=== PATIENT | male | born 1955 | race Caucasian/White ===

== ENCOUNTER 2018-12-24 16:08 | Observation (INO) | payer MEDICARE ==
[2018-12-24] MEDS ORDERED: Ondansetron PF 4 MG/2 ML Vial ONE (16:50)
[2018-12-24 16:55] LABS: #Basophils 0.1 thou/uL (0.0-0.2); #Eosinphils 0.1 thou/uL (0.0-0.7); #Monocytes 0.7 thou/uL (0.11-0.59); #Neutrophils 6.4 thou/uL (1.40-6.50); %Basophils 0.6 % (0.0-1.0); %Eosinophils 0.7 % (0.0-10.0); %Lymphocytes 21.5 % (21.0-51.0); %Neutrophils 69.2 % (42.0-75.0); Hemoglobin 16.8 g/dL (14.0-18.0); Mean Corpuscular HGB CONC 31.9 g/dL (32.0-36.0); Mean Corpuscular Hemoglobin 28.5 pg (27.0-31.0); Mean Corpuscular Volume 89.4 fL (78.0-98.0); Mean Platelet Volume 7.9 fL (7.4-10.4); Platelet Count 258 thou/uL (130-400); RBC Distribution Width 13.1 % (11.5-14.5); Red Blood Cell (RBC) Count 5.87 mill/uL (4.70-6.10); White Blood Cell (WBC) Count 9.2 thou/uL (4.8-10.8)
[2018-12-24 17:20] LABS: ALT (SGPT) 22 U/L (8-55); AST (SGOT) 22 U/L (5-34); Albumin 4.7 g/dL (3.4-4.8); Alkaline Phosphatase 137 U/L (40-150); Anion Gap 19 mmol/L (10-20); BUN (Urea Nitrogen) 24 mg/dL (8.4-25.7); Bilirubin, Total 0.6 mg/dL (0.2-1.2); CK (CPK) 75 U/L (30-200); Calc. Creatinine Clearance 0 mL/min (70-130); Calcium 10.2 mg/dL (7.8-10.44); Carbon Dioxide 22 mmol/L (23-31); Chloride 101 mmol/L (98-107); Estimated GFR-MDRD 40; Globulin 3.8 g/dL (2.4-3.5); Glucose 136 mg/dL (80-115); Potassium 4.4 mmol/L (3.5-5.1); Protein, Total 8.5 g/dL (5.8-8.1); Sodium 138 mmol/L (136-145)
--- NOTE | 2018-12-24 17:59 | PDOC.FPRHP ---
- History of Present Illness Chief Complaint: Weakness History of Present Illness: Mr. Daniel is a 63 y/o male who presents to the ED following a period of weakness earlier today. 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 He endorsed additional symptoms of diaphoresis, nausea, and two episodes of vomiting. He thought that he would be able to drive home and decided to stop for a hamburger, which he subsequently threw up. At that point, he felt unsafe and drove to the hospital. He denied syncope, head trauma, headache, changes in vision, chest pain, shortness of breath, recent illness, polyuria, dysuria, diarrhea, and substance abuse. ED Course: The patient received a 1L bolus of NS in the ED. - Allergies/Adverse Reactions Allergies Allergy/AdvReac Type Severity Reaction Status Date / Time No Known Allergies Allergy Unverified 12/24/18 21:22 - Home Medications Medication Instructions Recorded Confirmed Type Aspirin 325 mg PO DAILY 12/24/18 12/24/18 History Atorvastatin Calcium [Lipitor] mg PO DAILY 12/24/18 History Clopidogrel Bisulfate [Clopidogrel] 75 mg PO DAILY 12/24/18 12/24/18 History Lisinopril 20 mg PO DAILY 12/24/18 12/24/18 History Nitroglycerin [Nitrostat] 0.4 mg SL Q5MIN PRN 12/24/18 12/24/18 History metFORMIN [Glucophage] 500 mg PO BID-WM 12/24/18 12/24/18 History - History PMHx: CABG, HTN, Unspecified Vertebral Tumor w/ Surgical Removal PSHx: Right TKA, See Above FHx: Unable to Obtain Social: 1.5-2 PPD Tobacco Abuse, Denies EtOH and Drug Abuse. Works as a entry level truck driver. - Review of Systems General: denies: fever/chills, weight/appetite/sleep changes, night sweats, fatigue Eyes: denies: vision changes ENT: denies: nasal congestion, rhinorrhea Respiratory: denies: cough, shortness of breath Cardiovascular: denies: chest pain, palpitation Gastrointestinal: reports: nausea, vomiting. denies: diarrhea, abdominal pain Genitourinary: denies: dysuria, discharge Skin: denies: rashes, lesions Musculoskeletal: denies: swelling Neurological: reports: weakness. denies: syncope, seizure - Vital signs BP: [89/59] HR: [91] RR: [13] Tmax: [--] Pox: [100]% on [Room] Wt: [104 kg] - Physical Exam Constitutional: NAD, awake, alert and oriented, well developed HEENT: normocephalic and atraumatic, PERRLA, EOMI, conjunctiva clear, no scleral icterus, grossly normal vision, grossly normal hearing, other (Dry Mucous Membranes) Neck: supple, FROM, trachea midline, no LAD, no JVD Chest: no-tender to palpation, no lesions Heart: RRR, normal S1/S2, no murmurs/rubs/gallops, pulses present, no edema Lungs: CTAB, no respiratory distress, good air movement, no rales/rhonchi, no wheezing, no retractions Abdomen: soft, non-tender Musculoskeletal: normal structure, normal tone, ROM grossly normal Neurological: no focal deficit Skin: no rash/lesions -Skin: Delayed Capillary Refill Heme/Lymphatic: no unusual bruising or bleeding, no purpura, no petechia Psychiatric: normal mood and affect, intact recent and remote memory FMR H&P: Results - Labs Result Diagrams: 12/24/18 16:51 12/24/18 16:28 Lab results: WBC 9.2 thou/uL (4.8-10.8) 12/24/18 16:51 Hgb 16.8 g/dL (14.0-18.0) 12/24/18 16:51 Hct 52.5 % (42.0-52.0) H 12/24/18 16:51 MCV 89.4 fL (78.0-98.0) 12/24/18 16:51 Plt Count 258 thou/uL (130-400) 12/24/18 16:51 Neutrophils % 69.2 % (42.0-75.0) 12/24/18 16:51 Sodium 138 mmol/L (136-145) 12/24/18 16:28 Potassium 4.4 mmol/L (3.5-5.1) 12/24/18 16:28 Chloride 101 mmol/L (98-107) 12/24/18 16:28 Carbon Dioxide 22 mmol/L (23-31) L 12/24/18 16:28 BUN 24 mg/dL (8.4-25.7) 12/24/18 16:28 Creatinine 1.74 mg/dL (0.7-1.3) H 12/24/18 16:28 Glucose 136 mg/dL (80-115) H 12/24/18 16:28 Calcium 10.2 mg/dL (7.8-10.44) 12/24/18 16:28 Total Bilirubin 0.6 mg/dL (0.2-1.2) 12/24/18 16:28 AST 22 U/L (5-34) 12/24/18 16:28 ALT 22 U/L (8-55) 12/24/18 16:28 Alkaline Phosphatase 137 U/L (40-150) 12/24/18 16:28 Creatine Kinase 75 U/L (30-200) 12/24/18 16:28 B-Natriuretic Peptide 59.8 pg/mL (0-100) 12/24/18 16:34 Serum Total Protein 8.5 g/dL (5.8-8.1) H 12/24/18 16:28 Albumin 4.7 g/dL (3.4-4.8) 12/24/18 16:28 - EKG Interpretation EKG: Ischemic, ST Depression in V1-V3, inverted T Waves in V1-V3, Prolonged QTC, 78 BPM - Radiology Interpretation Chest x-ray Status: report reviewed by me (AICD in place with normal cardiac silhouette and pulmonic vasculature) FMR H&P: A/P - Problem List (1) Weakness Current Visit: Yes Status: Acute Code(s): R53.1 - WEAKNESS (2) Tobacco abuse Current Visit: Yes Status: Acute Code(s): Z72.0 - TOBACCO USE (3) CAD (coronary artery disease) Current Visit: Yes Status: Acute Code(s): I25.10 - ATHSCL HEART DISEASE OF [place] CORONARY ARTERY W/O ANG PCTRS (4) HTN (hypertension) Current Visit: Yes Status: Acute Code(s): I10 - ESSENTIAL (PRIMARY) HYPERTENSION (5) Heat exhaustion Current Visit: Yes Status: Acute Code(s): T67.5XXA - HEAT EXHAUSTION, UNSPECIFIED, INITIAL ENCOUNTER - Plan 1. Weakness, Heat Exhaustion Suspected -Likely secondary outdoor physical activity and subsequent dehydration -Cardiopulmonary etiology less likely based on imaging, negative Troponins x3 -Acute intoxication less likely based on mental status and history -BUN:Cr Ratio: 13.7 -Na: 138 -NS IV 150 ml/hr -Monitor fluid and electrolyte status, avoid rapid volume replacement 2. CAD -Continue home regimen of Aspirin 81 mg and Clopidogrel 75 mg, both PO daily -Advise F/U w/ PCP for risk stratification and subsequent statin initiation -Heart Healthy Diet 3. HTN -Currently hypotensive, likely 2/2 to dehydration -Hold HTN medications -Monitor for improvement following fluid resuscitation 4. Tobacco Abuse -Technical Report Writer patient on importance of smoking cessation in presence of severe cardiac risk factors -Consider nicotine patches if withdrawal symptoms present Dispo: Admit patient to Telemetry, continue fluid resuscitation and monitor clinically. Likely DC in the AM. FMR H&P: Upper Level - Pertinent history 63 yo male presents for evaluation after being in the heat today. 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 He reports increased sweating. He states he stopped working and left. He then reports eating a hamburger, but needing to stop on the side of the road to vomit. Otherwise no other acute changes to his health. Please see internet programmer note above for further information. General: Male appears stated age, NAD. Dry mucous membranes CV: RRR, no murmurs. AICD palpated to left upper chest Respiratory: CTA, no wheezing Psych: A&Ox3 Neuro: No focal deficits Abdomen: Soft, nontender, normoactive BS Extremities: No edema, equal movements bilaterally - Plan Date/Time: 12/24/181758 IBj MD, have evaluated this patient and agree with findings/ plan as outlined by internet programmer resident. Pertinent changes/additions are listed here. 1. Heat exhaustion - IVF rehydration - Likely be ready for discharge tomorrow - Monitor VS routine - Monitor I&Os - Consideration given to ACS with Heart Score 4 - Troponins negative x3 2. CAD - No indication for acute cardiac cause today - s/p stents - Continue home meds 3. DM2 - Continue home meds 4. HTN - Hold home BP meds for now due to hypotension secondary to volume depletion 5. YENNY - IVF as above PCP: OOT CODE STATUS: FULL CODE Disposition: Stable, patient will be admitted for 24 hours observation and rehydration. Addendum - Attending - Attending Attestation Date/Time: 12/24/182106 I personally evaluated the patient and discussed the management with Dr. Carrillo I agree with the History, Examination, Assessment and Plan documented above with any addition or exceptions noted below. 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 Patient describes weakness and episode of nausea and presented to [facility] and ruled out for ACS and admitted for dehydration and further observation. Patient with significant smoking history and FMHX Heart disease. Past attempt to aid quitting with nicoderm and chantix unsuccessful due to medication side effects, stressed importance of modifiable risk factor reduction. Patient not interested in tobacco cessation at this time.
[2018-12-24 18:10] LABS: Bilirubin Negative (Negative); Blood, Urine Negative (Negative); Clarity Clear (Clear); Glucose, Urine (Dipstick) 300 mg/dL (Negative); Leukocyte Negative Leu/uL (Negative); Nitrite Negative (Negative); Protein, Urine (Dipstick) 30 mg/dL (Neg-Trace); RBC/HPF 0-3 HPF (0-3); Squamous Epithelial 0-3 HPF (0-3); WBC/HPF 0-3 HPF (0-3)
[2018-12-24 18:20] LABS: Bacteria/HPF None Seen HPF (None Seen); Calcium Oxalate Crystals 1+ HPF (None Seen)
--- NOTE | 2018-12-24 18:23 | RAD ---
PORTABLE AP CHEST X-RAY: HISTORY: The patient reports being overheated and dizzy. The patient is having difficulty getting up from a s upine position. COMPARISON: None available. FINDINGS: A dual-lead left subclavian AICD is noted in place. Post surgical changes related to median sternoto my are noted. The cardiac silhouette is magnified by projection but is at the upper limits of normal to borderline enlarged. The pulmonary vasculature is within normal limits. The lungs are clear. T he osseous structures appear intact. IMPRESSION: No acute cardiopulmonary process. POS: COREY
[2018-12-24] MEDS ORDERED: Aspirin Chewable 81 MG TAB ONE (18:44)
[2018-12-24] MEDS ORDERED: Acetaminophen 325 MG TAB PO PRN (20:07)
[2018-12-24] MEDS ORDERED: HYDROcodone/Acetaminophen 5/325 mg Tablet PO PRN ×2 (20:07)
[2018-12-24] MEDS ORDERED: Sodium Chloride 0.9% 1,000 ML IV SCH (20:07)
[2018-12-24] MEDS ORDERED: Ondansetron PF 4 MG/2 ML Vial IVP PRN (20:07)
[2018-12-24 20:08] VITALS: BMI 31.0
[2018-12-24] MEDS ORDERED: Ondansetron ODT 4 MG TAB PO PRN (20:47)
[2018-12-24 20:51] LABS: Troponin I Less than 0.010 ng/mL (< 0.028)
[2018-12-24] MEDS ORDERED: Melatonin 3 MG TAB PO PRN (22:29)
[2018-12-24] MEDS: Sodium Chloride 0.9% 1,000 ML IV SCH (22:46)
[2018-12-24 23:53] LABS: Troponin I 0.023 ng/mL (< 0.028)
[2018-12-25] MEDS ORDERED: Nitroglycerin 0.4 MG TAB (25 Tab Bottle) SL PRN (00:59)
[2018-12-25 03:18] LABS: Troponin I 0.013 ng/mL (< 0.028)
[2018-12-25 03:24] LABS: Anion Gap 11 mmol/L (10-20); BUN (Urea Nitrogen) 23 mg/dL (8.4-25.7); Calc. Creatinine Clearance 95 mL/min (70-130); Calcium 8.3 mg/dL (7.8-10.44); Carbon Dioxide 25 mmol/L (23-31); Chloride 108 mmol/L (98-107); Estimated GFR-MDRD 62; Glucose 127 mg/dL (80-115); Potassium 4.1 mmol/L (3.5-5.1); Sodium 140 mmol/L (136-145)
[2018-12-25] MEDS: Sodium Chloride 0.9% 1,000 ML IV SCH ×2 (05:38→10:45)
--- NOTE | 2018-12-25 06:22 | PDOC.FM ---
- Subjective Subjective: Pt is feeling well this morning. Denies any events overnight. States that he was feeling much better by the time he got to the floor. Denies any continued dizziness or lightheadedness. Is eager to be discharged. - Objective Vital Signs & Weight: Vital Signs (12 hours) Temp Pulse Resp BP Pulse Ox 12/25/18 04:10 97.6 F 66 18 97/55 L 96 12/24/18 23:27 97.6 F 69 20 91/53 L 96 12/24/18 20:08 97.8 F 80 16 100/59 L 98 Weight Weight 103.918 kg I&O: 12/23/18 12/24/18 12/25/18 06:59 06:59 06:59 Output Total 250 Balance -250 Result Diagrams: 12/24/18 16:51 12/25/18 02:41 Phys Exam - Physical Examination Constitutional: NAD HEENT: PERRLA, moist MMs Neck: full ROM Respiratory: no wheezing, no rales, no rhonchi, clear to auscultation bilateral Cardiovascular: RRR, no rub 2/6 soft short systolic murmur Gastrointestinal: soft, non-tender, no distention, positive bowel sounds Musculoskeletal: no edema, pulses present Neurological: non-focal, moves all 4 limbs Psychiatric: normal affect, A&O x 3 Skin: no rash, cap refill <2 seconds Dx/Plan (1) Acute kidney injury Code(s): N17.9 - ACUTE KIDNEY FAILURE, UNSPECIFIED Status: Acute (2) CAD (coronary artery disease) Code(s): I25.10 - ATHSCL HEART DISEASE OF [place] CORONARY ARTERY W/O ANG PCTRS Status: Acute (3) HTN (hypertension) Code(s): I10 - ESSENTIAL (PRIMARY) HYPERTENSION Status: Acute (4) Heat exhaustion Code(s): T67.5XXA - HEAT EXHAUSTION, UNSPECIFIED, INITIAL ENCOUNTER Status: Acute - Plan Plan: Heat Exhaustion - Dehydration Was working outside in the head a large portion of the day -Cardiopulmonary etiology less likely based on imaging, negative Troponins x3 -BUN:Cr Ratio: 13.7 upon admission -NS IV 150 ml/hr Acute Kidney Injury -Cr 1.74 upon admission -Likely due to acute dehydration -Fluid resuscitated overnight -Resolved this a.m. with Cr of 1.2 -Recommended continued oral rehydration upon DC CAD -Continue home regimen of Aspirin 81 mg and Clopidogrel 75 mg, both PO daily -Advise F/U w/ PCP for risk stratification and subsequent statin initiation HTN -Hypotensive upon admission, home BP rx held -Normalized with fluid resuscitation -Will cont home rx upon DC Dispo: Admitted for likely heat exhaustion, dehydration, and YENNY - all have resolved at this point, will DC this am
[2018-12-25] MEDS ORDERED: metFORMIN 500 MG TAB PO SCH (08:00)
[2018-12-25 08:21] VITALS: BP 106/54; TEMP 97.4
[2018-12-25] MEDS ORDERED: Aspirin 325 MG TAB PO SCH (09:00)
[2018-12-25] MEDS ORDERED: Atorvastatin Calcium 40 MG TAB PO SCH (09:00)
[2018-12-25] MEDS ORDERED: Clopidogrel Bisulfate 75 MG TAB PO SCH (09:00)
--- NOTE | 2018-12-25 11:53 | PRG ---
DATE OF SERVICE: 12/25/2018 Mr. Daniel is a very pleasant 63-year-old white male with a history of coronary artery disease. Yesterday, he was working in 100 degree heat when he had a period of weakness to the point that he was unable to continue working. He also developed profound diaphoresis, nausea, and two episodes of vomiting. He no time had chest pain. He drove himself to the ER, where he was felt to be suffering from heat exhaustion. Notably, he was not febrile in the ER. He was, however, slightly hypotensive and stated that he felt much improved after receiving a liter of bolus of normal saline in the ED. He was observed overnight. Again, he had no chest discomfort. His troponins trended negative of 0.01 to 0.02. He had no significant electrolyte abnormalities. His BUN is 23, creatinine was 1.2. As stated, he initially was slightly hypotensive, but this responded well to fluids and upon discharge, his blood pressure was 106/60. He will be discharged today to follow up with his PCP and our dining chair seat cushion trimmer with whom he already has an appointment in about 3 days. Job ID: [id number]
--- NOTE | 2018-12-26 03:52 | DIS ---
DATE OF ADMISSION: 12/24/2018 DATE OF DISCHARGE: 12/25/2018 RESIDENT: Ruddy Johnston DO ADMITTING ATTENDING: Randal Sood MD DISCHARGE ATTENDING: Jun Rosales MD CONSULTS: None. PROCEDURES: None. PRIMARY DIAGNOSES: 1. Heat exhaustion. 2. Acute kidney injury. 3. Hypertension. SECONDARY DIAGNOSES: 1. Dehydration. 2. Coronary artery disease. DISCHARGE MEDICATIONS: 1. Nitrostat 0.4 mg p.r.n. 2. Aspirin 325 daily. 3. Metformin 50 mg b.i.d. 4. Clopidogrel 75 mg daily. 5. Lisinopril 20 mg daily. 6. Atorvastatin 20 mg daily. DISCONTINUED MEDICATIONS: None. HISTORY OF PRESENT ILLNESS AND HOSPITAL COURSE: The patient is a 63-year-old male who presents to the ED following a period of dizziness and weakness earlier today. 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 He stated that following the period of time in the heat, he was driving back home when he started to get lightheaded, nauseous, dizzy, and vomited x1. In the ED, he was worked up and found to have acute kidney injury with a creatinine of 1.74. He was also found to have EKG that showed ST depression in V1 through V3, inverted T-waves in V1 through V3, and prolonged QTc. The patient was subsequently admitted for observation. IV rehydration was initiated following boluses in the ER with normal saline at 150 mL/h. Review of the patient's medical history showed that he has a distant history of previous CABG and EKG changes were likely related to that. Trended troponin x3 were all negative. The patient denied ever experiencing any chest pain, chest pressure, or shortness of breath. The following morning, the patient creatinine had normalized to 1.2. The patient stated that he was feeling much better and was eager to go home. He was advised to continue oral rehydration and to follow up with his PCP. DISPOSITION: Stable. DISCHARGE INSTRUCTIONS: 1. Location: Home. 2. Diet: Heart healthy. 3. Activity: As tolerated. 4. Followup: Follow up PCP within 7 days. Job ID: [id number]
--- NOTE | 2018-12-26 15:41 | EKG ---
Test Reason : Blood Pressure : / mmHG Vent. Rate : 078 BPM Atrial Rate : 078 BPM P-R Int : 160 ms QRS Dur : 116 ms QT Int : 432 ms P-R-T Axes : 034 058 120 degrees QTc Int : 492 ms Normal sinus rhythm Incomplete left bundle branch block Nonspecific T wave abnormality Prolonged QT Abnormal ECG Confirmed by DAVID CHINCHILLA, MANN Leslie ([id number]), sports editor HONG MASSEY ([id number]) on 12/26/2018 3:40:58 PM Referred By: Confirmed By:MANN HERNANDEZ MD
== END 2018-12-25 11:15 | disposition home or self-care (01) ==
LOC: ERS 16:08 → 2SW 19:51
PROVIDERS: ADMIT Family Medicine; ATTEND Family Medicine
DX: T67.5XXA Heat exhaustion, unspecified, initial encounter (principal); E86.0 Dehydration; I10 Essential (primary) hypertension; F17.210 Nicotine dependence, cigarettes, uncomplicated; N17.9 Acute kidney failure, unspecified; I25.10 Atherosclerotic heart disease of native coronary artery without angina pectoris; Z79.82 Long term (current) use of aspirin; Z79.84 Long term (current) use of oral hypoglycemic drugs; Z79.899 Other long term (current) drug therapy; Z95.1 Presence of aortocoronary bypass graft
CPT/HCPCS: 71045; 80048; 80053; 82550; 83880; 84484 ×3; 85025; 93005; 96361 ×3; 96374; 99285; G0378 ×3; 36415; 81003; 81015; J2405